=== PATIENT | female | born 2000 | race Caucasian/White ===

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

== ENCOUNTER 2024-11-12 08:42 | Emergency (ER) | payer OTHER ==
[~2024-11-12] VITALS: Ht 162.6 cm; Wt 83.0 kg
[2024-11-12 08:56] LABS: BASOPHILS 0.7 % (0.1-1.2); EOSINOPHILS 1.1 % (0.7-5.8); HEMATOCRIT 45.4 % (34.1-44.9); HEMOGLOBIN 15.5 g/dL (11.2-15.7); LYMPHOCYTES 17.5 % (19.3-51.7); MCH 31.1 PG (25.6-32.2); MCHC 34.1 g/dL (32.2-35.5); MONOCYTES 5.2 % (4.7-12.5); NEUTROPHILS 75.1 % (34.0-71.1); PLATELET COUNT 304 K/uL (182-369); RBC 4.99 M/uL (3.93-5.22)
[2024-11-12] MEDS ORDERED: HYDROmorphone HCL 1 MG/ML SYR IV PRN (09:00)
[2024-11-12] MEDS ORDERED: ondansetron HCL 4 MG/2 ML VIAL IV ONE (09:00)
[2024-11-12 09:13] LABS: ALBUMIN 4.5 g/dL (3.4-5.0); ALBUMIN/GLOBULIN RATIO 1.22 (1.1-2.4); ANION GAP 16.7 (7-21); BILIRUBIN, TOTAL 0.4 mg/dL (0.2-1.0); BUN/CREATININE RATIO 13.63 (6.0-28.6); CALCIUM 9.4 mg/dL (8.5-10.1); CREATININE, SERUM 0.88 mg/dL (0.55-1.02); MAGNESIUM 1.8 mg/dL (1.8-2.4); POTASSIUM 3.7 mmol/L (3.5-5.1); PROTEIN, TOTAL 8.2 g/dL (6.4-8.2)
[2024-11-12] MEDS ORDERED: METOCLOPRAMIDE HCL 10 MG/2 ML SDV IV ONE (09:30)
[2024-11-12] MEDS ORDERED: diphenhydrAMINE HCL 50 MG/ML VIAL IV ONE (09:30)
[2024-11-12] MEDS ORDERED: SODIUM CHLORIDE 0.9% 1,000 ML IV PRN (09:30)
[2024-11-12] MEDS ORDERED: droPERidol 5 MG/2 ML VIAL IV ONE (10:15)
[2024-11-12 10:33] LABS: BILIRUBIN, URINE NEGATIVE (negative); BLOOD/HGB, URINE NEGATIVE (Negative); KETONE, URINE SMALL (Negative); LEUK ESTERASE, URINE NEGATIVE (negative); NITRITE, URINE NEGATIVE (negative); PH, URINE 8.5 (5-7)
[2024-11-12] MEDS ORDERED: droPERidol 5 MG/2 ML VIAL IV PRN (12:30)
[2024-11-12 13:50] VITALS: BP 109/70
== END 2024-11-12 14:02 | disposition home or self-care (01) ==
LOC: ED 08:42
PROVIDERS: Emergency Medicine
DX: R10.31 Right lower quadrant pain (principal); R11.10 Vomiting, unspecified; N83.202 Unspecified ovarian cyst, left side; F17.200 Nicotine dependence, unspecified, uncomplicated
CPT/HCPCS: 36415; 74177; 80053; 81003; 83690; 83735; 84703; 85025; 96361; 96375; 99284-25; J1171; J1200; J1790; J2405; J2765; J7030; Q9967

== ENCOUNTER 2025-01-24 08:48 | Emergency (ER) | payer OTHER ==
[~2025-01-24] VITALS: Ht 162.6 cm; Wt 83.0 kg
--- OUTSIDE RECORDS SUMMARY | ~2025-01-24 | XMS | Continuity of Care Document ---
Demographics + + + | Address | [address] | | | [place] [address] | + + + | Preferred Language | Unknown | + + + | Marital Status | Never | + + + | Hindu Affiliation | Unknown | + + + | Race | White | + + + | Ethnic Group | Not or | + + + Author + + + | Author | [facility] | + + + | Organization | [facility] | + + + | Address | [address] | | | [place] [address] | + + + | Phone | | + + + Care Team Providers + + + + | Care [place] Artist Name | Role | Phone | + + + + Unavailable | Unavailable | + + + + Unavailable | Unavailable | + + + + Allergies and Intolerances + + + + + + | date | description | facility | reaction | severity | + + + + + + | 2024-11-12 | UNK | [facility] - | (no reaction) | (no severity) | | 00:00 | | [facility] | | | + + + + + + Encounters No information. Functional Status No information. Immunizations No information. Medications No information. Problems + + + + | date | description | facility | + + + + | 2024-11-12 00:00 | Abdominal pain | [facility] | | | | [facility] | + + + + | 2024-11-12 00:00 | Vomiting | [facility] | | | | [facility] | + + + + | 2025-01-06 00:00 | Encounter for medical | [facility] | | | screening examination | [facility] | + + + + Procedures No information. Results/Labs No information. Social History +--------+ + + | date | description | facility | +--------+ + + Vital Signs + + + +---------+ | date | measurement | value | units | + + + +---------+ | 2025-01-06 00:00 | BMI | 31.4 | kg/m2 | + + + +---------+ | 2025-01-06 00:00 | BP_diastolic | 67 | mmHg | + + + +---------+ | 2025-01-06 00:00 | BP_systolic | 120 | mmHg | + + + +---------+ | 2025-01-06 00:00 | heart_rate | 73 | /min | + + + +---------+ | 2025-01-06 00:00 | height_metric | 162.56 | cm | + + + +---------+ | 2025-01-06 00:00 | height_standard | 64 | in | + + + +---------+ | 2025-01-06 00:00 | o2_saturation | 99 | % | + + + +---------+ | 2025-01-06 00:00 | respiration_rate | 16 | /min | + + + +---------+ | 2025-01-06 00:00 | temperature_metric | 36.78 | C | | | | | | + + + +---------+ | 2025-01-06 00:00 | | 98.2 | F | | | temperature_standar | | | | | d | | | + + + +---------+ | 2025-01-06 00:00 | weight_metric | 83 | kg | + + + +---------+ | 2025-01-06 00:00 | weight_standard | 182.98 | lb | + + + +---------+"
--- OUTSIDE RECORDS SUMMARY | 2025-01-24 08:54 | XMS ---
PreManage Notification: [facility] Security Refrigerating Engineer Head Events No recent Security Events currently on file CRITERIA MET - [facility] - 2 Visits in 30 Days CARE PROVIDERS -, [facility] Dentist: Aviation Technical Systems Specialist Current [place] PHONE: [phone] NATHALY LUZ Physician Cotton Acreage Measurer Current PHONE: Unknown Pete has no Care Guidelines for this patient. [place] VISIT COUNT (12 MO.) [address] [place] [address] TOTAL 4 NOTE: Visits indicate total known visits. ED/UCC VISIT TRACKING (12 MO.) 01/24/2025 08:[address] [facility] TYPE: Emergency COMPLAINT: - DEHYDRATED 01/06/2025 13:02 [facility] [place] TYPE: Emergency COMPLAINT: - SUTURE REMOVAL 12/28/2024 11:11 [facility] [place] TYPE: Emergency DIAGNOSES: - Laceration without foreign body of right thumb without damage to nail, initial encounter - FINGER LAC 11/12/2024 08:[address] [facility] [place] TYPE: Emergency COMPLAINT: - VOMITING DIAGNOSES: - Nicotine dependence, unspecified, uncomplicated - Right lower quadrant pain - Unspecified ovarian cyst, left side - Vomiting, unspecified INPATIENT VISIT TRACKING (12 MO.) No inpatient visits to display in this time frame [email or web address]
[2025-01-24] MEDS ORDERED: SODIUM CHLORIDE 0.9% 500 ML IV ONE (09:15)
[2025-01-24 09:20] LABS: BASOPHILS 0.9 % (0.1-1.2); EOSINOPHILS 1.4 % (0.7-5.8); LYMPHOCYTES 17.8 % (19.3-51.7); MCH 31.4 PG (25.6-32.2); MCHC 34.3 g/dL (32.2-35.5); MCV 91.5 fL (79.4-94.8); MONOCYTES 6.1 % (4.7-12.5); NEUTROPHILS 73.1 % (34.0-71.1); RBC 4.59 M/uL (3.93-5.22)
[2025-01-24 09:31] LABS: ALT (SGPT) 39.0 U/L (14-59); AST (SGOT) 18.0 U/L (15-37); GLOMERULAR FILTRATION RATE,EST 104.0 mL/min (>60); PROTEIN, TOTAL 7.8 g/dL (6.4-8.2); UREA NITROGEN 12.0 mg/dL (7-18)
[2025-01-24 09:43] LABS: BLOOD/HGB, URINE NEGATIVE (Negative); KETONE, URINE NEGATIVE (Negative); LEUK ESTERASE, URINE NEGATIVE (negative); NITRITE, URINE NEGATIVE (negative)
[2025-01-24] MEDS ORDERED: POTASSIUM CHLORIDE 20 MEQ/15 ML CUP PO ONE (10:15)
[2025-01-24] MEDS ORDERED: PROCHLORPERAZINE EDISYLATE 10 MG/2 ML VIAL IV ONE (10:45)
[2025-01-24] MEDS ORDERED: ONDANSETRON ODT4 MG PO (11:34)
[2025-01-24 11:42] VITALS: BP 122/80
== END 2025-01-24 11:42 | disposition home or self-care (01) ==
LOC: ED 08:48
PROVIDERS: Emergency Medicine
DX: R11.2 Nausea with vomiting, unspecified (principal); D72.829 Elevated white blood cell count, unspecified; F17.200 Nicotine dependence, unspecified, uncomplicated
CPT/HCPCS: 36415; 80053; 81003; 83735; 84703; 85025; 85060; 96361; 96374; 96375; 99284-25; A9270; J0780; J1200; J1790; J2405; J7040